=== PATIENT | female | born 1955 | race Caucasian/White ===

== ENCOUNTER → 2017-08-06 | Outpatient (CLI) | payer MEDICAID, OTHER ==
--- NOTE | 2017-08-06 19:52 | CT ---
EXAMINATION TYPE: CT chest wo/w con DATE OF EXAM: 08/06/2017 COMPARISON: 10/15/2015 HISTORY: Cough and nasal congestion x2 months. CT DLP: 487.3 mGycm Automated exposure control for dose reduction was used. CONTRAST: CT scan of the chest is performed with IV Contrast, patient injected with 100ml mL of Omnipaque 300. FINDINGS: The lungs are clear of infiltrate. There is no pleural effusion. Heart size is normal. There is no pe ricardial effusion. There are no hilar masses. There is no mediastinal adenopathy. There is no eviden ce of aortic aneurysm or dissection. There is no sign of pulmonary embolism. Bony thorax is intact. IMPRESSION: Negative CT scan of the chest. No adverse change compared to old exam. No evidence of br onchopneumonia.
== END | disposition home or self-care (01) ==
LOC: RADCTMAIN 19:11
PROVIDERS: ATTEND Family Medicine
DX: R05 Cough (principal)
CPT/HCPCS: 71270; Q9967

== ENCOUNTER → 2017-08-12 | Outpatient (CLI) | payer MEDICAID, OTHER ==
[2017-08-12 18:00] LABS: T4, Free (Free Thyroxine) 0.87 ng/dL (0.78-2.19)
== END | disposition home or self-care (01) ==
LOC: LABWHC1 17:04
PROVIDERS: ATTEND Internal Medicine Endocrinology, Diabetes & Metabolism
DX: E05.90 Thyrotoxicosis, unspecified without thyrotoxic crisis or storm (principal)
CPT/HCPCS: 36415; 84439; 84443; 84480; 84481

== ENCOUNTER → 2017-09-14 | Outpatient (CLI) | payer MEDICAID, OTHER ==
--- NOTE | 2017-09-15 11:40 | MM ---
Reason for exam: screening (asymptomatic). Last mammogram was performed 3 years and 6 months ago. History: Patient is postmenopausal and has history of other cancer at age 51. Family history of breast cancer in mother at age 70, breast cancer in maternal cousin at age 70, and breast cancer in paternal cousin at age 70. Took estrogen for 2 years beginning at age 54. Physical Findings: A clinical breast exam by your physician is recommended on an annual basis and results should be correlated with mammographic findings. MG Screening Mammo w CAD Bilateral CC and MLO view(s) were taken. Prior study comparison: March 12, 2014, mammogram. January 16, 2011, mammogram. The breast tissue is heterogeneously dense. This may lower the sensitivity of mammography. There is no discrete abnormality. No significant changes when compared with prior studies. ASSESSMENT: Negative, BI-RAD 1 RECOMMENDATION: Routine screening mammogram of both breasts in 1 year.
== END | disposition home or self-care (01) ==
LOC: RADMAMWWP 17:01
PROVIDERS: ATTEND Family Medicine
DX: Z12.31 Encounter for screening mammogram for malignant neoplasm of breast (principal)
CPT/HCPCS: 77067

== ENCOUNTER → 2018-02-09 | Outpatient (CLI) | payer MEDICAID, OTHER ==
[2018-02-09 11:58] LABS: T4, Free (Free Thyroxine) 0.87 ng/dL (0.78-2.19)
--- NOTE | 2018-02-09 12:01 | US ---
EXAMINATION TYPE: US thyroid st tissue head/neck DATE OF EXAM: 02/09/2018 COMPARISON: US 12/26/15 CLINICAL HISTORY: E04.1 THYROID NODULE. GLAND SIZE: Right Lobe: 4.6 x 1.5 x 1.2 cm Overall Parenchyma: heterogenous Left Lobe: 4.1 x 1.6 x 1.3 cm Overall Parenchyma: heterogeneous Isthmus Thickness: 0.5 cm NODULES RIGHT: # of nodules measured on right: 1 1. 0.6 x 0.8 x 0.4 cm isoechoic mixed nodule at the upper pole with poorly defined margins; . This nodule is wider than tall and shows intranodular vascularity. Prior size: 0.6 x 0.4 x 0.7 cm LEFT: # of nodules measured on left: 0 ISTHMUS: # of nodules measured in the isthmus: 0 Bilateral neck scanned, no evidence of lymphadenopathy. IMPRESSION: 1. Subcentimeter thyroid nodule, stable
== END | disposition home or self-care (01) ==
LOC: LABWHC1 10:58
PROVIDERS: ATTEND Internal Medicine Endocrinology, Diabetes & Metabolism
DX: E04.1 Nontoxic single thyroid nodule (principal)
CPT/HCPCS: 36415; 76536; 84439; 84443

== ENCOUNTER → 2024-08-16 | Outpatient (CLI) | payer MEDICARE ==
--- NOTE | 2024-08-16 15:36 | XR ---
EXAMINATION TYPE: XR soft tissue neck DATE OF EXAM: 08/16/2024 COMPARISON: NONE CLINICAL INDICATION: Female, 68 years old with history of R42 DIZZINESS AND GIDDINESS; TECHNIQUE: 2 views FINDINGS: No abnormal narrowing of the subglottic airway. 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 No prevertebral soft tissue swelling. Nasopharyngeal and oropharyngeal a irways are patent. Epiglottis is normal. No retained radiopaque foreign body seen. IMPRESSION: Unremarkable radiographic soft tissues of the neck. [facility], , 08/16/2024 3:34 PM
--- NOTE | 2024-08-16 15:51 | CT ---
EXAMINATION TYPE: CT iac wo con DATE OF EXAM: 08/16/2024 COMPARISON: None CLINICAL INDICATION: Female, 68 years old with history of R42 DIZZINESS AND GIDDINESS; PHH, Pt states she has been having balance issues for years. TECHNIQUE: CT scan of internal auditory canal is performed without contrast, thin cut axial images ar e obtained, coronal reformatted images are also reviewed. CT DLP: [address] CTDI: mGy Automated exposure control for dose reduction was used. FINDINGS: The external auditory canals are patent bilaterally. Mastoid air cells show no evidence of abnormal opacification bilaterally. The middle ear ossicles are symmetric and unremarkable. There is no evidence of suspicious surrounding soft tissue density to suggest cholesteatoma. The scutum is preserved bilaterally. The cochlea and the semicircular canals are symmetric and unremarkable. Ves tibular aqueduct and internal carotid canal appear unremarkable. Temporomandibular joints are maintained bilaterally. Visualized paranasal sinuses are grossly clear. Visualized portion brain parenchyma is felt within normal limits. IMPRESSION: No significant abnormality seen to account for patient's symptoms. [facility], , 08/16/2024 3:49 PM
== END | disposition home or self-care (01) ==
LOC: RADCTMAIN 14:38
PROVIDERS: ATTEND Otolaryngology
DX: H92.02 Otalgia, left ear (principal); R42 Dizziness and giddiness
CPT/HCPCS: 70360; 70480